=== PATIENT | female | born 1985 | race Native Hawaiian/Other Pacific Islander ===

== ENCOUNTER 2018-11-10 12:48 | Emergency (ER) | payer OTHER ==
[2018-11-10] MEDS ORDERED: Sodium Chloride 0.9% 1,000 ML IV STA (14:16)
[2018-11-10 15:09] LABS: BASO % 0.3 % (0.0-2.0); EOS # 0.1 K/uL (0.0-0.7); EOS % 1.5 % (0.0-4.0); HEMOGLOBIN 13.9 g/dL (12.0-16.0); LYMPH # 0.6 K/uL (1.0-4.3); LYMPH % 9.7 % (20.0-40.0); MEAN CELL VOLUME 96.4 fl (81.0-99.0); MEAN CORPUSCULAR HEMOGLOBIN 32.3 pg (27.0-31.0); MEAN CORPUSCULAR HGB CONC 33.5 g/dL (33.0-37.0); MEAN PLATELET VOLUME 8.3 fl (7.2-11.7); MONO # 0.3 K/uL (0.0-0.8); MONO % 5.5 % (0.0-10.0); NEUT # 5.3 K/uL (1.8-7.0); PLATELET COUNT 179 K/uL (130-400); RBC 4.31 Mil/uL (3.80-5.20); RED CELL DISTRIBUTION WIDTH 13.2 % (11.5-14.5); WHITE BLOOD COUNT 6.3 K/uL (4.8-10.8)
--- NOTE | 2018-11-10 15:09 | ED PDOC ---
HPI: Chest Pain Time Seen by Provider: 11/10/18 12:58 Chief Complaint (Nursing): Abdominal Pain Chief Complaint (Provider): Chest pain History Per: Patient History/Exam Limitations: no limitations Onset/Duration Of Symptoms: Days (4x) Current Symptoms Are (Timing): Still Present Severity: Moderate Additional Complaint(s): 33 year old female with no pertinent past medical history presents to the ED for an evaluation of right sided chest pain that started 3x days ago. Patient states that 4x days ago, she accidentally fell into a basement through a manhole and was able to catch herself by landing on her arms before she fell to the ground. During the fall, patient hit the right side of her chest on the steps, and did not feel much pain until the next day. Patient reports having pain at the site of impact (to the right side of her chest and neck) for the past 4x days. Patient states that the neck pain is non-radiating. Furthermore, patient reports that she was able to rock climb that day and the following day with pain. Patient states that yesterday she developed abdominal discomfort and had 3x episodes of non-bloody watery diarrhea without nausea or vomiting. Patient denies having melena, hematochezia, rectal bleeding, sick contacts, recent travel, or fevers. PMD: None provided. Past Medical History Reviewed: Historical Data, Nursing Documentation, Vital Signs Vital Signs: Last Vital Signs Temp 98.9 F 11/10/18 12:55 Pulse 82 11/10/18 12:55 Resp 16 11/10/18 12:55 BP 104/66 11/10/18 12:55 Pulse Ox 99 11/10/18 12:55 LORAINE Report Viewed: Yes - Medical History PMH: No Chronic Diseases - Family History Family History: States: No Known Family Hx - Home Medications Home Medications: Ambulatory Orders Medication Instructions Recorded Cyclobenzaprine [Cyclobenzaprine 10 mg PO Q8 PRN #10 tab 11/10/18 HCl] Dicyclomine [Bentyl] 20 mg PO TID PRN #10 tab 11/10/18 - Allergies Allergies/Adverse Reactions: Allergies Allergy/AdvReac Type Severity Reaction Status Date / Time gluten Allergy DIARRHEA Verified 11/10/18 12:59 Review of Systems ROS Statement: Except As Marked, All Systems Reviewed And Found Negative Constitutional: Negative for: Fever Cardiovascular: Positive for: Chest Pain (right sided) Gastrointestinal: Positive for: Abdominal Pain, Diarrhea (3x episodes, non-bloody, watery). Negative for: Nausea, Vomiting, Melena, Hematochezia, Other (rectal bleeding) Musculoskeletal: Positive for: Neck Pain (non radiating) Physical Exam - Reviewed Nursing Documentation Reviewed: Yes Vital Signs Reviewed: Yes - Physical Exam Appears: Positive for: Well, Non-toxic, No Acute Distress Head Exam: Positive for: ATRAUMATIC, NORMOCEPHALIC Skin: Positive for: Normal Color, Warm, Dry ENT: Positive for: Normal ENT Inspection Cardiovascular/Chest: Positive for: Regular Rate, Rhythm. Negative for: Chest Non Tender (right sided axillary chest wall tenderness with minimal ecchymosis. (-) flail chest.) Respiratory: Positive for: Normal Breath Sounds Gastrointestinal/Abdominal: Positive for: Normal Exam, Soft. Negative for: Tenderness, Distended, Guarding Back: Positive for: Normal Inspection. Negative for: L CVA Tenderness, R CVA Tenderness Neurological/Psych: Positive for: Awake, Alert, Oriented (3x) - Laboratory Results Result Diagrams: 11/10/18 14:23 11/10/18 14:23 - ECG O2 Sat by Pulse Oximetry: 99 (RA) Pulse Ox Interpretation: Normal - Radiology X-Ray: Interpreted by Me (C-spine, R rib series x-ray) X-Ray Interpretation: No Acute Disease Medical Decision Making Medical Decision Makin:58 Initial impression: 33 year old female with chest pain and neck pain status post fall,and abdominal pain. Initial plan: * XRay cervical spine ap and lat * XRay ribs and chest right * CMP * lipase * upreg * CBC with differential * urinalysis * bentyl 20 mg PO * IV NS 1,000 ml IV 1,000 mls/hr * pepcid 20 mg IVP * reevaluation On re-evaluation, pt. reports abdominal pain is still present but has improved. Offered CT abd/pelvis but refused. States she prefers to go home and rest and will return to ED if pain becomes worse or persists. Scribe Attestation: Documented by Sara Leiva, acting as a scribe for Attila Perez Provider Scribe Attestation: All medical record entries made by the Scribe were at my direction and personally dictated by me. I have reviewed the chart and agree that the record accurately reflects my personal performance of the history, physical exam, medical decision making, and the department course for this patient. I have also personally directed, reviewed, and agree with the discharge instructions and disposition. Disposition - Clinical Impression Clinical Impression: Cervical sprain, Chest wall contusion, Diarrhea - Patient ED Disposition Is Patient to be Admitted: No - Disposition Referrals: [email or web address] [Outside] Disposition: Routine/Home Disposition Time: 16:07 Condition: IMPROVED Additional Instructions: FOLLOW UP WITH YOUR DOCTOR FOR FURTHER EVALUATION RETURN TO ED IMMEDIATELY IF SYMPTOMS WORSEN DIMA ARREDONDO, thank you for letting us take care of you today. Your provider was Daniela Fenton MD and you were treated for FALL;ABD PAIN. The emergency medical care you received today was directed at your acute symptoms. If you were prescribed any medication, please fill it and take as directed. It may take several days for your symptoms to resolve. Return to the Emergency Department if your symptoms worsen, do not improve, or if you have any other problems. Please contact your doctor or call one of the physicians/clinics you have been referred to that are listed on the Patient Visit Information form that is included in your discharge packet. Bring any paperwork you were given at discharge with you along with any medications you are taking to your follow up visit. Our treatment cannot replace ongoing medical care by a primary care provider outside of the emergency department. Thank you for allowing the [facility] team to be part of your care today. If you had an X-Ray or CT scan: A Radiologist will review the ED reading if any change in treatment is needed we will contact you. If you had a blood, urine, or wound culture: It will take several days for the results, if any change in treatment is needed we will contact you. If you had an STI test: It will take 48 hours for the results. Please call after 1 week if you have not heard back. Prescriptions: Cyclobenzaprine [Cyclobenzaprine HCl] 10 mg PO Q8 PRN #10 tab PRN Reason: Muscle Spasm Dicyclomine [Bentyl] 20 mg PO TID PRN #10 tab PRN Reason: abdominal pain Instructions: Diarrhea and Traveler's Diarrhea, Adult (DC), Contusion (DC), Cervical Muscle Strain (DC) Forms: [employer] (Macedonian) Print Language: BOTSWANAN
[2018-11-10 15:17] LABS: SQUAMOUS EPITHIAL 1 /hpf (0-5); URINE BILIRUBIN NEGATIVE (NEGATIVE); URINE BLOOD NEGATIVE (NEGATIVE); URINE CLARITY CLEAR (Clear); URINE COLOR STRAW (YELLOW); URINE GLUCOSE (UA) NEG (NEGATIVE); URINE LEUKOCYTE ESTERASE NEG Leu/uL (Negative); URINE PROTEIN NEGATIVE (NEGATIVE); URINE UROBILINOGEN 0.2-1.0 mg/dL (0.2-1.0)
[2018-11-10 15:21] LABS: ALB/GLOB RATIO 1.5 (1.0-2.1); ALBUMIN 4.6 g/dL (3.5-5.0); ALT/SGPT 32 U/L (9-52); AST/SGOT 35 U/L (14-36); BLOOD UREA NITROGEN 12 mg/dl (7-17); GFR NON-AFRICAN AMERICAN > 60; LIPASE 107 U/L (23-300)
--- NOTE | 2018-11-10 15:42 | RAD ---
Date of service: 11/10/2018 PROCEDURE: Radiographs of the Chest and Right Ribs. HISTORY: Trauma COMPARISON: None available. TECHNIQUE: Frontal radiograph of the chest and multiple oblique radiographs of the right ribs were obtained. 4 views obtained. FINDINGS: RIGHT RIBS: No fracture or focal lesion visualized. LUNGS: Clear. PLEURA: No pneumothorax or pleural fluid. CARDIOVASCULAR: Normal cardiac size. No pulmonary vascular congestion. No aortic atherosclerotic calcification present OTHER FINDINGS: None. IMPRESSION: Unremarkable radiographs of the chest and right ribs. No right rib fracture.
--- NOTE | 2018-11-10 15:44 | RAD ---
Date of service: 11/10/2018 PROCEDURE: Cervical Spine Radiographs. HISTORY: Pain. COMPARISON: None available. TECHNIQUE: 3 views obtained. FINDINGS: Note that the study is somewhat limited due to obscuration of the distal tip of the odontoid by overlying occiput in the open-mouth projection. BONES: No evidence of acute fractures. Vertebral bodies exhibit relatively normal stature. There straightening of the normal cervical lordosis which may be due to patient positioning however the possibility of underlying muscle spasm may contribute. DISC SPACES: Disc space heights are relatively maintained. Tiny marginal anterior and posterior osteophyte formation present former larger than latter. SOFT TISSUES: Normal. No prevertebral soft tissue swelling. OTHER FINDINGS: None. Limited study. No fracture seen within limitation of the exam IMPRESSION:
[2018-11-10 16:02] LABS: BANDS 3 % (0-2); LYMPHOCYTE 10 % (20-50); MONOCYTE 4 % (0-10); NEUTROPHIL 83 % (42-75); PLATELET ESTIMATE NORMAL (NORMAL); TOTAL CELLS COUNTED 100
[2018-11-10 16:55] VITALS: BP 105/57; PULSE 62; RESP 17; TEMP 98.4
[2018-11-10 22:17] VITALS: O2SAT 99
== END 2018-11-10 16:52 | disposition home or self-care (01) ==
LOC: H.ER 12:48
DX: S20.219A Contusion of unspecified front wall of thorax, initial encounter (principal); S13.4XXA Sprain of ligaments of cervical spine, initial encounter; W19.XXXA Unspecified fall, initial encounter; Y92.89 Other specified places as the place of occurrence of the external cause; R19.7 Diarrhea, unspecified
CPT/HCPCS: 71101; 72040; 80053; 81003; 81025; 83690; 85025; 96361; 96374; 99284; J7030